=== PATIENT | female | born 1965 | race Asian ===

== ENCOUNTER 2018-05-19 12:30 | Emergency (ER) | payer OTHER ==
[2018-05-19] MEDS ORDERED: NAPROXEN 250 MG TABLET PO STA (13:16)
[2018-05-19 13:40] LABS: CALCIUM 8.8 mg/dL (8.5-10.3); CREATININE 0.6 mg/dL (0.4-1.0)
--- NOTE | 2018-05-19 14:09 | ED Physician Documentation ---
History of Present Illness - Stated complaint Stated Complaint: RT SIDE BODY PX - Chief complaint Chief Complaint: Ext Problem - Additonal information Additional information: 52-year-old female presents the emergency department for evaluation of pain in her right leg. The patient describes a dull aching pain in the lateral aspect of her thigh. The patient reports pain that radiates down her whole leg. The patient has no pain in her knee or ankle. No significant leg swelling. No recent trauma or injury. The patient does stand for long hours. Symptoms are described as moderate. No other associated symptoms. Review of Systems Constitutional: denies: Fever, Chills Eyes: denies: Discharge Ears: denies: Ear pain Nose: denies: Congestion Cardiac: denies: Chest pain / pressure Respiratory: denies: Cough GI: denies: Abdominal Pain Skin: denies: Rash Musculoskeletal: reports: Extremity pain. 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 - Present Medications Home Medications: Ambulatory Orders Medication Instructions Recorded Confirmed Naproxen 500 mg PO BID PRN #60 tablet 05/19/18 - Allergies Allergies/Adverse Reactions: Allergies Allergy/AdvReac Type Severity Reaction Status Date / Time No Known Drug Allergies Allergy Verified 05/19/18 12:49 - Social History Does the pt smoke?: No Smoking Status: Never smoker Does the pt drink ETOH?: No Does the pt have substance abuse?: No - Immunizations Immunizations are current?: Yes PD ED PE NORMAL - General General: Alert and oriented X 3, No acute distress - HEENT HEENT: Atraumatic, PERRL, EOMI - Cardiac Cardiac: RRR - Respiratory Respiratory: No respiratory distress, Clear bilaterally - Derm Derm: Normal color, Warm and dry - Extremities Extremities: No deformity, Normal ROM s pain - Neuro Neuro: Alert and oriented X 3, Normal speech - Psych Psych: Normal affect PD ED PE EXPANDED - Extremities JENNIFER LE visual: 1 - tenderness (The patient has tenderness to palpation along the iliotibial band, there is no significant swelling. There is no skin changes. The patient has normal range of motion of bilateral hips, knees and ankles. The patient has brisk cap refill and a normal dorsalis pedis pulse) Results - Vitals Vitals: Vital Signs - 24 hr 05/19/18 12:47 Temperature 37.0 C Heart Rate 97 Respiratory 16 Rate Blood Pressure 147/86 H O2 Saturation 97 Oxygen O2 Source Room air - Labs Labs: Laboratory Tests 05/19/18 13:23 Sodium 136 Potassium 3.7 Chloride 103 Carbon Dioxide 25 Anion Gap 8.0 BUN 7 Creatinine 0.6 Estimated GFR (MDRD) 105 Glucose 124 H Calcium 8.8 Total Creatine Kinase 193 - Rads (name of study) US Radiology: Final report received XR hip Radiology: Final report received (IMPRESSION: 1. No acute osseous abnormality demonstrated. 2. Minor DJD changes seen. 3. Nonspecific soft tissue 12 x 10 mm calcification in the proximal right thigh region without associated osseous changes), See rad report PD MEDICAL DECISION MAKING - ED course ED course: The patient's symptoms are more consistent with Iliotibiall band syndrome, Currently, the patient appears appropriate for discharge and ongoing outpatient management. I recommended that she ask her primary for referral to physical therapy. The patient understands and agrees. I discussed warning signs and recommended returning to the emergency department for any worsening or any concerns. The incidental finding seen on x-ray was also discussed with the patient. The p atient will follow with primary care for this finding per Departure - Departure Disposition: 01 Home, Self Care Clinical Impression: Leg pain, right, Soft tissue calcification Condition: Good Instructions: IT Band Syndrome Tx, Iliotibial Band Stretch Follow-Up: THOMAS TRACY MD [Primary Care Provider] - Within 3 Days (Please ask your primary care to arrange for an outpatient oral to physical therapy. If your symptoms are not improving you may need a referral to orthopedics for further investigation of your symptoms. Please ask your primary care to further investigate this nonspecific soft tissue calcification. You may need an MRI to further assess this finding.) Prescriptions: Naproxen 500 mg PO BID PRN #60 tablet PRN Reason: Pain Comments: Please return to the emergency department for worsening symptoms or any concerns.
--- NOTE | 2018-05-19 14:42 | Ultrasound Report ---
Reason: leg pain Procedure Date: 05/19/2018 Accession Number: [id number] / [id number] Procedure: US - Duplex Ext Veins Right CPT Code: FULL RESULT: EXAM: RIGHT LOWER EXTREMITY VENOUS ULTRASOUND EXAM DATE: 05/19/2018 02:18 PM. CLINICAL HISTORY: Right leg pain. COMPARISON: None. TECHNIQUE: Real-time sonographic vascular imaging was performed by the inspection manager through the lower extremity utilizing both color-flow and Doppler spectral analysis. Multiple inside outside sales representative static images were saved for review. FINDINGS: Common Femoral Vein (CFV): Normal. CFV-GSV Junction: Normal. Profunda Femoral Vein (PFV): Normal. Femoral Vein (FV) Prox: Normal. Femoral Vein (FV) Mid: Normal. Femoral Vein (FV) Dist: Normal. Popliteal Vein: Normal. Posterior Tibial Veins: Normal. Peroneal Veins: Normal. Contralateral Side CFV: Normal. Other: None. IMPRESSION: No evidence for deep venous thrombosis. RADIA
--- NOTE | 2018-05-19 15:07 | XRAY Report ---
Reason: hip pain Procedure Date: 05/19/2018 Accession Number: [id number] / [id number] Procedure: XR - Hip w/Pelvis 2-3V RT CPT Code: FULL RESULT: EXAM: RIGHT HIP AND PELVIS RADIOGRAPHY EXAM DATE: 05/19/2018 02:39 PM. HISTORY: Right hip pain. COMPARISONS: None. TECHNIQUE: 1 view of the pelvis and 1 view of the hip. FINDINGS: Bones: Normal. No fracture or bone lesion. Joints: Minor degenerative changes are seen in the hip joints. No joint space narrowing or malalignment is demonstrated. Soft Tissues: Small coarse calcification is seen projecting over the proximal right thigh region, nonspecific measuring approximately 12 x 10 mm. No associated osseous changes are seen. IMPRESSION: 1. No acute osseous abnormality demonstrated. 2. Minor DJD changes seen. 3. Nonspecific soft tissue 12 x 10 mm calcification in the proximal right thigh region without associated osseous changes. RADIA
[2018-05-19 15:16] VITALS: BP 107/62
== END 2018-05-19 15:20 | disposition home or self-care (01) ==
LOC: ED 12:30
DX: M79.604 Pain in right leg (principal); M79.9 Soft tissue disorder, unspecified; I10 Essential (primary) hypertension; E11.9 Type 2 diabetes mellitus without complications
CPT/HCPCS: 36415; 73502; 80048; 82550; 93971; 99283; A9270

== ENCOUNTER 2019-11-25 07:42 | Outpatient (CLI) | payer OTHER ==
--- NOTE | 2019-11-26 15:21 | Nuclear Medicine Report ---
Reason: EPIGASTRIC PAIN Procedure Date: 11/25/2019 Accession Number: [id number] / [id number] Procedure: NM - Gastric Empty Small Bowel CPT Code: Final Report FULL RESULT: PROCEDURE: Gastric Empty Small Bowel INDICATIONS: EPIGASTRIC PAIN TECHNIQUE: A Tc-99m labeled sulfur colloid labeled egg sandwich or oatmeal was served to the patient. Anterior and posterior planar images of the abdomen were obtained at 0 minutes and 30 minutes, then at hourly intervals up to 4 hours. The patient was upright and ambulating during the interval. COMPARISON: FINDINGS: The stomach has normal size, morphology, and position. There is normal emptying of solid gastric contents from the stomach by visual inspection. No gastroesophageal reflux is visualized. The percentage of tracer retained at specific time points are as follows: Time point Percent gastric retention Normal range 30 minutes 40% 70% or more 1 hour 22% 30% to 90% 2 hours 16% 60% or less 3 hours 14% 30% or less 4 hours 7% 10% or less IMPRESSION: Rapid gastric emptying raising the possibility of dumping syndrome however please correlate clinically. No evidence of delayed gastric emptying. Reviewed by: Valentin Reynolds MD on 11/26/2019 3:19 PM PDT Approved by: Valentin Reynolds MD on 11/26/2019 3:19 PM PDT Station ID: [id number]
== END 2019-11-25 07:43 | disposition home or self-care (01) ==
LOC: DI 07:42
PROVIDERS: ATTEND Internal Medicine
DX: R10.13 Epigastric pain (principal)
CPT/HCPCS: 78265

== ENCOUNTER 2020-07-05 10:39 | Emergency (ER) | payer OTHER ==
[2020-07-05 10:46] VITALS: BP 146/92
[2020-07-05] MEDS ORDERED: MELOXICAM 7.5 MG TABLET PO STA (11:12)
--- NOTE | 2020-07-05 11:25 | XRAY Report ---
PROCEDURE: Wrist 4 View LT INDICATIONS: wrist pain TECHNIQUE: 4 views of the wrist were acquired. COMPARISON: None FINDINGS: Bones: No fractures or dislocations. No suspicious bony lesions. Scaphoid view: Intact. Soft tissues: No suspicious soft tissue calcifications. IMPRESSION: No acute osseous abnormality. Reviewed by: Bernard Odell MD on 07/05/2020 11:24 AM [facility] Approved by: Bernard Odell MD on 07/05/2020 11:24 AM [facility] Station ID: [id number]
--- NOTE | 2020-07-05 11:43 | ED Physician Documentation ---
PD HPI UPPER EXT INJURY - Stated complaint Stated Complaint: LT HAND INJ - Chief complaint Chief Complaint: Ext Problem - History obtained from History obtained from: Patient - History of Present Illness Location: Left, Wrist Where injury occurred: Work Timing - onset: Yesterday Timing - duration: Days (1) Timing - details: Gradual onset Pain level max: 8 Pain level now: 8 Improved by: Rest, Ice, Immobilization Worsened by: Moving, Palpating Associated symptoms: No: Weakness, Numbness, Tingling, Swelling Recently seen: Not recently seen - Additonal information Additional information: 54-year-old female presents to the emergency department stating that she was carrying heavy boxes at work and now has left wrist pain. Does not recall any specific injury. Worse with movement, better with rest. Patient is right- handed. Took Motrin without relief. 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 - Present Medications Home Medications: Ambulatory Orders Medication Instructions Recorded Confirmed Meloxicam [Mobic] 7.5 mg PO BID PRN #20 tablet 07/05/20 - Allergies Allergies/Adverse Reactions: Allergies Allergy/AdvReac Type Severity Reaction Status Date / Time No Known Drug Allergies Allergy Verified 07/05/20 10:46 - Social History Does the pt smoke?: No Smoking Status: Never smoker Does the pt drink ETOH?: No Does the pt have substance abuse?: No - Immunizations Immunizations are current?: Yes PD ED PE NORMAL - Vitals Vital signs reviewed: Yes - General General: Alert and oriented X 3, No acute distress - HEENT HEENT: Moist mucous membranes - Neck Neck: Supple, no meningeal sign - Derm Derm: Warm and dry - Extremities Extremities: Other (L wrist - TTP over the volar aspect of the L wrist. NVI. No snuffbox tenderness. ) - Neuro Neuro: Alert and oriented X 3 Results - Vitals Vitals: Vital Signs - 24 hr 07/05/20 10:41 Temperature 36.4 C L Heart Rate 88 Respiratory 16 Rate Blood Pressure 146/92 H O2 Saturation 98 Oxygen O2 Source Room air - Rads (name of study) L wrist xray Radiology: Prelim report reviewed, EMP read contemporaneously, See rad report (normal) PD MEDICAL DECISION MAKING - ED course Complexity details: reviewed results, considered differential, d/w patient ED course: 54-year-old female with a left wrist sprain. Pain is worse with active motion and passive motion. Tenderness along the tendons. Full range of motion of the hand and fingers. Placed in a Velcro splint for comfort. No acute findings on x-ray. We will have her follow-up with her doctor for further care. Patient counseled regarding signs and symptoms for which I believe and urgent re- evaluation would be necessary. Patient with good understanding of and agreement to plan and is comfortable going home at this time This document was made in part using voice recognition software. While efforts are made to proofread this document, sound alike and grammatical errors may occur. Departure - Departure Disposition: 01 Home, Self Care Clinical Impression: Left wrist sprain Qualifiers: Encounter type: initial encounter Qualified Code(s): S63.502A - Unspecified sprain of left wrist, initial encounter Condition: Good Instructions: ED Sprain Wrist Follow-Up: JULIA CUETO MD [Primary Care Provider] - Within 1 week Prescriptions: Meloxicam [Mobic] 7.5 mg PO BID PRN #20 tablet PRN Reason: Pain Comments: Follow-up with your doctor next week for further care. Your x-ray does not show any fractures today. Wear the brace to help the area heal. Ice the area as well. Continue gentle stretching. Forms: Activity restrictions Discharge Date/Time: 07/05/20 11:56
== END 2020-07-05 11:56 | disposition home or self-care (01) ==
LOC: ED 10:39
DX: S63.502A Unspecified sprain of left wrist, initial encounter (principal); X50.0XXA Overexertion from strenuous movement or load, initial encounter; Y99.0 Civilian activity done for income or pay; I10 Essential (primary) hypertension
CPT/HCPCS: 73110; 99283; 99284; A9270

== ENCOUNTER 2024-01-26 09:06 | Emergency (ER) | payer OTHER ==
[2024-01-26 09:27] VITALS: BP 140/87; O2SAT 97
--- NOTE | 2024-01-26 10:44 | ED Physician Documentation ---
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 No: Fall, Twist Where injury occurred: Work Timing - onset: How many days ago Improved by: Rest Worsened by: Moving. No: Palpating Associated symptoms: Numbness (intermittently down to thumb.). 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 - Present Medications Home Medications: Ambulatory Orders Medication Instructions Recorded Confirmed Meloxicam [Mobic] 7.5 mg PO BID PRN #20 tablet 07/05/20 HYDROcod/ACETAM 5/325 [Kim 5/325] 1 ea PO Q6H PRN #18 tablet 01/26/24 Lidocaine 4 % TP DAILY PRN #10 patch 01/26/24 Meloxicam [Mobic] 7.5 mg PO BID 10 Days #30 tablet 01/26/24 - Allergies Allergies/Adverse Reactions: Allergies Allergy/AdvReac Type Severity Reaction Status Date / Time No Known Drug Allergies Allergy Verified 01/26/24 09:17 - Social History Does the pt smoke?: Yes Smoking Status: Current some day smoker Does the pt drink ETOH?: No Does the pt have substance abuse?: No - Immunizations Immunizations are current?: Yes - POLST Patient has POLST: No PD ED PE NORMAL - Vitals Vital signs reviewed: Yes - General General: Alert and oriented X 3, Well developed/nourished - Derm Derm: Normal color, Warm and dry - Extremities Extremities: Other (guarded ROM of left shoulder. Not tender at AC. posterior shoulder to suprascapular area tender. Pain with rotational movements of shoulder against resistance, but able to do all directions weakly. ) - Neuro Neuro: No motor deficit, No sensory deficit Results - Vitals Vitals: Vital Signs - 24 hr 01/26/24 09:14 Temperature 36.8 C Heart Rate 90 Respiratory 20 Rate Blood Pressure 140/87 H O2 Saturation 97 Oxygen O2 Source Room air - Rads (name of study) left shoulder Relevant Findings:: Prelim report reviewed, EMP independent interpretation of test (calcific changes of bursal area. AC arthritic. No fractures nor dislocations. ) PD Medical Decision Making - ED course Complexity details: reviewed results (xray showing calficic bursa. no fracture nor dislocation. ), considered differential (onset shoulder pain worsening over several days, initially at work and worse with working. Repetitive lateral movem ent sof shoulders. No impact/fall. ), d/w patient Reviewed Lab Results: pain on rotator cuff movements. Not tender at AC nor anterior shouler, so presume more activity through the rotator cuff areas has led to some acute tondonitis. All rotational movements hurt. Departure - Departure Disposition: Home, Self Care Clinical Impression: Shoulder tendonitis Qualifiers: Laterality: left Qualified Code(s): M77.8 - Other enthesopathies, not elsewhere classified Condition: Stable Record reviewed to determine appropriate education?: Yes Follow-Up: STU WOODARD DO [Primary Care Provider] - [facility] [Provider Group] Prescriptions: Lidocaine 4 % TP DAILY PRN #10 patch PRN Reason: Pain 1-4 Meloxicam [Mobic] 7.5 mg PO BID 10 Days #30 tablet HYDROcod/ACETAM 5/325 [Kim 5/325] 1 ea PO Q6H PRN #18 tablet PRN Reason: Pain Comments: Your x-ray shows some chronic changes with inflammation evidenced by calcification in the bursa around the shoulder and some arthritis around the AC joint. However these are not the areas that you are hurting right now so are just old findings. Your current symptoms sound like some arthritis in the shoulder joint or more likely some tendon inflammation of the shoulder from the repetitive use. (Tendinitis). I believe decreased use in conjunction with some anti-inflammatories will improve this in the short-term. We did provide you a sling. Use it to reduce motion through the shoulder and help support it. However you do not want the shoulder to become stiff so please do regular range of motion of the shoulder gently several times daily over the next week. Otherwise have it supported with the sling and decreased use. I wrote a work note for 5 days of minimal to no use of the arm and shoulder. 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 Follow-up with your primary care or orthopedics if not improving well over the next several days to week. In addition to the anti-inflammatories regularly, you can add Tylenol 500 650 mg 4 times a day for pain or the hydrocodone/acetaminophen if needed for worse pain. Topically to the area hurting you could also try lidocaine patches or such. I sent your prescriptions to your preferred pharmacy. I am prescribing a short course of narcotic pain medication for you. These are potentially dangerous and addictive medications that should be used carefully. These medications may constipate you. Take an amyp-mkc-fjeompl stool softener such as docusate twice daily with plenty of water while taking these medications. If you go 24 hours without a bowel movement, take [id number] MiraLAX, per package instructions. Do not drink or drive while taking these medications. If you received narcotic or sedating medications while in the emergency department do not drive for 24 hours. Store this medication in a safe, secure place and out of reach of children. It is a violation of federal law to give or sell this medication to another person or to use in a manner other than prescribed. The ED will not refill narcotic prescriptions, including prescriptions lost or stolen. You can dispose of unwanted medications at the [facility]'s office or at several pharmacies such as [facility]. Forms: PCP List, Activity restrictions Discharge Date/Time: 01/26/24 11:46
--- NOTE | 2024-01-26 11:14 | XRAY Report ---
PROCEDURE: Shoulder 2+V LT INDICATIONS: shoulder pain with limited ROM TECHNIQUE: 3 views of the shoulder were acquired. COMPARISON: None. FINDINGS: Bones: No fractures or dislocations. No suspicious bony lesions. Visualized ribs appear intact. Soft tissues: Chronic soft tissue calcification seen about the superolateral humeral head. Otherwise normal. IMPRESSION: Findings concerning for calcific tendinopathy. Reviewed by: Gerda Heredia MD on 01/26/2024 10:12 AM [facility] Approved by: Gerda Heredia MD on 01/26/2024 10:12 AM [facility] Station ID: [id number]
[2024-01-26] MEDS: HYDROcod/ACETAM 5/325 MG TABLET PO STA (11:36)
[2024-01-26] MEDS: NAPROXEN 250 MG TABLET PO STA (11:36)
== END 2024-01-26 11:46 | disposition home or self-care (01) ==
LOC: ED 09:06
DX: M77.8 Other enthesopathies, not elsewhere classified (principal); I10 Essential (primary) hypertension; E11.9 Type 2 diabetes mellitus without complications; F17.200 Nicotine dependence, unspecified, uncomplicated
CPT/HCPCS: 73030; 99283; 99284; A9270